=== PATIENT | male | born 1955 | race African-American/Black ===

== ENCOUNTER 2016-08-20 14:12 | Emergency (ER) | payer MEDICAID ==
[~2016-08-20 14:12] MED LIST: CARV3.1242 PO; CEPH-569 PO; DIGO125T82 PO; HYDR-4134 PO; ISOS30TA PO; SIMV10TA6 PO; WARF2TAB55 PO
== END 2016-08-20 17:10 | disposition left against medical advice (07) ==
LOC: ER 14:12
DX: R51 Headache (principal); Z53.21 Procedure and treatment not carried out due to patient leaving prior to being seen by health care provider

== ENCOUNTER 2016-09-15 09:00 | Emergency (ER) | payer MEDICAID ==
[~2016-09-15] VITALS: Ht 188 cm; Wt 79.0 kg
[2016-09-15 10:49] VITALS: BP 141/123
== END 2016-09-15 12:48 | disposition home or self-care (01) ==
LOC: ER 11:08
DX: K13.0 Diseases of lips (principal); H26.9 Unspecified cataract; H92.20 Otorrhagia, unspecified ear; Z79.01 Long term (current) use of anticoagulants; I10 Essential (primary) hypertension; Z95.0 Presence of cardiac pacemaker
CPT/HCPCS: 99283

== ENCOUNTER 2019-12-20 01:00 | Inpatient (IN) | payer MEDICARE, MEDICAID ==
[~2019-12-20] VITALS: Ht 185.4 cm; Wt 79.8 kg
[~2019-12-20 01:00] MED LIST changes: +DIGO125T PO; -DIGO125T82 PO; -SIMV10TA6 PO; +SIMV10TA97 PO; +WARF-67 PO; -WARF2TAB55 PO
[2019-12-20 02:32] LABS: HEMATOCRIT. 45.6 % (42.0-52.0); HEMOGLOBIN. 15.3 g/dL (14.0-18.0); MEAN CORPUSCULAR VOLUME 98.4 fL (80.0-94.0); RED BLOOD CELL COUNT 4.62 mill/uL (4.7-6.1)
[2019-12-20 02:33] LABS: BASOPHILS % 0.7 % (0.0-2.0); EOSINOPHILS % 0.5 % (0.0-5.0); LYMPHOCYTES % 7.3 % (20.0-50.0); MEAN CORPUSCULAR HEMOGLOBIN 33.2 pg (28.0-32.0); MEAN PLATELET VOLUME 7.4 fl (7.4-10.4); NEUTROPHILS % 85.5 % (40.0-76.0); PLATELET 245 x1000/uL (130-400); RED CELL DISTRIBUTION WIDTH 13.3 % (11.6-14.6)
[2019-12-20 02:35] LABS: CHLORIDE 111 mEq/L (98-107)
[2019-12-20 02:37] LABS: CLARITY URINE CLEAR (CLEAR); COLOR URINE YELLOW (YELLOW); KETONES URINE NEGATIVE (NEGATIVE); LEUKOCYTE ESTERASE URINE NEGATIVE (NEGATIVE); NITRITE URINE NEGATIVE (NEGATIVE); OCCULT BLOOD URINE NEGATIVE (NEGATIVE); PROTEIN URINE 1+ (NEGATIVE); SPECIFIC GRAVITY URINE 1.014 (1.005-1.030); UROBILINOGEN URINE 0.2 E.U./dL (0.2-1.0)
[2019-12-20 02:38] LABS: INR 1.2; PARTIAL THROMBOPLASTIN TIME 25.9 sec (23.4-31.0); PROTHROMBIN TIME 12.1 sec (9.6-11.0)
[2019-12-20 03:15] LABS: D-DIMER 0.51 mg/L FEU (<0.50)
[2019-12-20] MEDS ORDERED: HYDRALAZINE 20MG/ML VIAL IV PRN (04:15)
[2019-12-20] MEDS ORDERED: ONDANSETRON HCL 4MG/2ML INJ IV PRN (06:00)
[2019-12-20] MEDS ORDERED: CLONIDINE 0.1MG TABLET PO PRN (06:00)
[2019-12-20] MEDS ORDERED: GUAIFENESIN 200MG/10ML SUGAR FREE UDC PO PRN (06:00)
[2019-12-20] MEDS ORDERED: DOCUSATE SODIUM 100MG CAPSULE PO PRN (06:00)
[2019-12-20] MEDS ORDERED: ACETAMINOPHEN 325MG TABLET PO PRN (06:00)
[2019-12-20] MEDS ORDERED: AZITHROMYCIN 500 MG in DEXT 5% WATER 250 ML IV SCH (06:30)
[2019-12-20] MEDS ORDERED: NITROGLYCERIN OINT 1GM/INCH UDPKT TD PRN (06:45)
[2019-12-20] MEDS ORDERED: PIPERACILLIN/TAZ 3.375G PREMIX 50 ML IV SCH (08:00)
[2019-12-20] MEDS: ENOXAPARIN 40MG/0.4ML SYR SUBCUT SCH ×2 (09:00→10:26)
[2019-12-20 09:46] VITALS: BP 145/96
[2019-12-20] MEDS: AMLODIPINE 10MG TABLET PO SCH (10:26)
[2019-12-20] MEDS ORDERED: FUROSEMIDE 40MG/4ML VIAL IVP NR (11:00)
[2019-12-20 11:30] VITALS: BP 145/95
[2019-12-20 12:00] VITALS: BP 113/63
[2019-12-20] MEDS: PIPERACILLIN/TAZOBACTAM 3.375 G in DEXT 5% WATER 100 ML IV SCH ×3 (12:17→21:48)
[2019-12-20] MEDS ORDERED: HYDRALAZINE HCL 50MG TABLET PO SCH (14:00)
[2019-12-20] MEDS: HYDRALAZINE HCL 100MG TABLET PO SCH ×2 (15:21→22:20)
[2019-12-20 16:00] VITALS: BP 131/88
[2019-12-20 20:25] VITALS: BP 118/74
[2019-12-20 20:30] LABS: T4 FREE 1.05 ng/dL (0.76-1.46)
[2019-12-20 20:31] LABS: CREATINE KINASE MB FRACTION 3.2 ng/mL (0.5-3.6)
[2019-12-20] MEDS: CARVEDILOL 3.125 MG TABLET PO SCH (21:47)
[2019-12-20 22:05] VITALS: BP 117/64
[2019-12-21] VITALS (8 sets, daily range): BP systolic 103–137; BP diastolic 62–85
[2019-12-21] MEDS: PIPERACILLIN/TAZOBACTAM 3.375 G in DEXT 5% WATER 100 ML IV SCH ×4 (04:37→21:26)
[2019-12-21] MEDS: HYDRALAZINE HCL 100MG TABLET PO SCH ×3 (05:11→21:13)
[2019-12-21 07:14] LABS: BASOPHILS % 0.6 % (0.0-2.0); EOSINOPHILS % 0.9 % (0.0-5.0); HEMATOCRIT. 46.7 % (42.0-52.0); LYMPHOCYTES % 15.5 % (20.0-50.0); MEAN CORPUSCULAR HEMOGLOBIN 33.6 pg (28.0-32.0); MEAN PLATELET VOLUME 7.6 fl (7.4-10.4); MONOCYTES % 9.8 % (2.0-8.0); NEUTROPHILS % 73.2 % (40.0-76.0); PLATELET 213 x1000/uL (130-400); RED BLOOD CELL COUNT 4.77 mill/uL (4.7-6.1); RED CELL DISTRIBUTION WIDTH 13.3 % (11.6-14.6)
[2019-12-21 07:24] LABS: CHLORIDE 106 mEq/L (98-107)
[2019-12-21 07:40] LABS: CREATINE KINASE 64 IU/L (39-308)
[2019-12-21 07:43] LABS: CREATINE KINASE MB FRACTION 2.4 ng/mL (0.5-3.6)
[2019-12-21] MEDS: ENOXAPARIN 40MG/0.4ML SYR SUBCUT SCH ×2 (09:00→09:11)
[2019-12-21] MEDS: AZITHROMYCIN 500 MG in DEXT 5% WATER 250 ML IV SCH (09:11)
[2019-12-21] MEDS: AMLODIPINE 10MG TABLET PO SCH (09:11)
[2019-12-21] MEDS: CARVEDILOL 3.125 MG TABLET PO SCH ×2 (09:11→21:00)
[2019-12-21 09:52] LABS: BG BASE EXCESS -2.4 mmol/L (-2.0-2.0); BG CARBOXYHEMOGLOBIN 0.7 % (0.5-1.5); BG DEOXYHEMOGLOBIN 1.7 % (0.0-5.0); BG FRACTION INSPIRED OXYGEN 36; BG HCO3 ACT 20.5 mmol/L (22.0-26.0); BG METHEMOGLOBIN 0.1 % (0.0-1.5); BG OXYGEN SATURATION 98.3 % (92.0-98.5); BG OXYHEMOGLOBIN 97.5 % (94.0-97.0); BG PCO2 30.6 mmHg (35.0-45.0); BG PH 7.443 (7.350-7.450); BG PO2 115.6 mmHg (75.0-100.0); BG SAMPLE SITE RIGHT BRACHIAL; BG TOTAL HEMOGLOBIN 15.6 g/dL (12.0-18.0); BG VENT MODE NASAL CANNULA
[2019-12-21] MEDS: FUROSEMIDE 40MG/4ML VIAL IVP SCH (13:12)
[2019-12-21 15:52] LABS: CREATINE KINASE 68 IU/L (39-308)
[2019-12-21 15:58] LABS: CREATINE KINASE MB FRACTION 2.3 ng/mL (0.5-3.6)
[2019-12-21] MEDS ORDERED: IPRATROPIUM/ALBUTEROL 0.5-3(2.5)MG/3ML NEB HHN PRN (17:15)
[2019-12-22] VITALS: BP 121/75
[2019-12-22] MEDS: PIPERACILLIN/TAZOBACTAM 3.375 G in DEXT 5% WATER 100 ML IV SCH ×2 (03:54→10:37)
[2019-12-22 04:00] VITALS: BP 109/85
[2019-12-22] MEDS: HYDRALAZINE HCL 100MG TABLET PO SCH (05:01)
[2019-12-22 06:55] LABS: CHLORIDE 106 mEq/L (98-107)
[2019-12-22 07:18] LABS: BASOPHILS % 0.6 % (0.0-2.0); EOSINOPHILS % 1.5 % (0.0-5.0); HEMATOCRIT. 45.1 % (42.0-52.0); HEMOGLOBIN. 15.3 g/dL (14.0-18.0); LYMPHOCYTES % 17.7 % (20.0-50.0); MEAN CORPUSCULAR HEMOGLOBIN 33.4 pg (28.0-32.0); MEAN CORPUSCULAR VOLUME 98.4 fL (80.0-94.0); MEAN PLATELET VOLUME 7.7 fl (7.4-10.4); MONOCYTES % 9.5 % (2.0-8.0); NEUTROPHILS % 70.7 % (40.0-76.0); PLATELET 208 x1000/uL (130-400); RED BLOOD CELL COUNT 4.58 mill/uL (4.7-6.1); RED CELL DISTRIBUTION WIDTH 13.1 % (11.6-14.6)
[2019-12-22 08:00] VITALS: BP 127/85
[2019-12-22] MEDS: AZITHROMYCIN 500 MG in DEXT 5% WATER 250 ML IV SCH (08:01)
[2019-12-22] MEDS: AMLODIPINE 10MG TABLET PO SCH (08:45)
[2019-12-22] MEDS: FUROSEMIDE 40MG/4ML VIAL IVP SCH (08:45)
[2019-12-22] MEDS: CARVEDILOL 3.125 MG TABLET PO SCH (08:45)
[2019-12-22] MEDS: ENOXAPARIN 40MG/0.4ML SYR SUBCUT SCH (08:49)
[2019-12-22 12:00] VITALS: BP 97/75
[2019-12-22 12:40] VITALS: BP 127/85
== END 2019-12-22 14:00 | disposition home or self-care (01) | DRG 291 ==
LOC: ER 01:00 → 7WST 02:42 → ENRESERV 07:19 → 6WST 22:15
PROVIDERS: ADMIT Hospitalist; ATTEND Hospitalist
DX: I11.0 Hypertensive heart disease with heart failure (principal); J96.01 Acute respiratory failure with hypoxia; I48.92 Unspecified atrial flutter; I42.9 Cardiomyopathy, unspecified; I48.91 Unspecified atrial fibrillation; I50.41 Acute combined systolic (congestive) and diastolic (congestive) heart failure; R91.8 Other nonspecific abnormal finding of lung field; I25.10 Atherosclerotic heart disease of native coronary artery without angina pectoris; J44.9 Chronic obstructive pulmonary disease, unspecified; F17.200 Nicotine dependence, unspecified, uncomplicated; Z86.73 Personal history of transient ischemic attack (TIA), and cerebral infarction without residual deficits; Z95.0 Presence of cardiac pacemaker; Z79.01 Long term (current) use of anticoagulants; Z79.899 Other long term (current) drug therapy; Z71.6 Tobacco abuse counseling; Z03.818 Encounter for observation for suspected exposure to other biological agents ruled out
CPT/HCPCS: 36415; 36600; 71045; 80048; 80053; 80061; 81003; 82375; 82550; 82553; 82805; 83036; 83605; 83880; 84145; 84439; 84443; 84484; 85025; 85379; 87635; 93005; 93306; 93970; 99285; J0360; J0456; J1650; J1940; J2543; J7060

== ENCOUNTER 2020-04-08 17:27 | Emergency (ER) | payer MEDICARE, MEDICAID ==
[~2020-04-08] VITALS: Ht 185.4 cm; Wt 77.0 kg
[~2020-04-08 17:27] MED LIST changes: -CARV3.1242 PO
[2020-04-08] MEDS ORDERED: IBUPROFEN 600MG TABLET PO ONE (19:45)
[2020-04-08] MEDS ORDERED: TETANUS, DIPHTHERIA, PERTUSSIS VAC/PF 0.5ML (>7YR OLD) IM ONE (19:45)
[2020-04-08] MEDS ORDERED: BACITRACIN ZINC OINT UDPKT TOP ONE (19:45)
[2020-04-08 20:29] VITALS: BP 121/71
== END 2020-04-08 20:38 | disposition home or self-care (01) ==
LOC: ER 17:27
DX: S80.812A Abrasion, left lower leg, initial encounter (principal); L03.116 Cellulitis of left lower limb; M25.512 Pain in left shoulder; I10 Essential (primary) hypertension; Z95.0 Presence of cardiac pacemaker; Z79.899 Other long term (current) drug therapy; X08.8XXA Exposure to other specified smoke, fire and flames, initial encounter; Y93.01 Activity, walking, marching and hiking; Y92.89 Other specified places as the place of occurrence of the external cause; Y99.8 Other external cause status
CPT/HCPCS: 90471; 90715; 99283